=== PATIENT | female | born 1935 | race Caucasian/White ===

== ENCOUNTER 2018-02-13 05:51 | Inpatient (IN) | payer OTHER ==
[2018-02-07 16:18] VITALS: BMI 26.4
[2018-02-13] MEDS ORDERED: oxyCODONE HCL 10 MG SUSTAINED ACTING TABLET PO ONE (06:30)
[2018-02-13] MEDS ORDERED: ROPIVICAINE 0.2%/MORPH PF/KETOROLAC - 51ML DISP.SYRINGE IA ONE ×2 (06:30→10:47)
[2018-02-13] MEDS ORDERED: TRANEXAMIC ACID 1000 MG/10 ML VIAL IVPUSH ONE (06:30)
[2018-02-13] MEDS ORDERED: CEFAZOLIN 1 GM/D5W 1 GM/50 ML BAG IVPB ONE (06:30)
--- NOTE | 2018-02-13 07:03 | HP ---
Admitting History and Physical - Admission Chief Complaint: left hip osteoarthritis x years History of Present Illness: 82 year old female presents in regard to her left hip. Longstanding history of left hip osteoarthritis. Patient complains of pain, limited ROM, difficulty ambulating and difficulty with ADLs including putting on her socks and shoes. Patient has failed conservative treatment measures including PO medication, activity modification, injections and exercise program. Patient would like to proceed with surgical intervention, left total hip arthroplasty - MAKOplasty. History Source: Patient - Past Medical History Cardiovascular: Yes: HTN, Hyperlipdemia Musculoskeletal: Yes: Osteoarthritis Endocrine: Yes: Hypothyroidism - Past Surgical History Additional Past Surgical History: See written history & physical. - Smoking History Smoking history: Never smoked Have you smoked in the past 12 months: No - Alcohol/Substance Use Hx Alcohol Use: No Home Medications - Allergies Allergies/Adverse Reactions: Allergies Allergy/AdvReac Type Severity Reaction Status Date / Time No Known Allergies Allergy Verified 02/13/18 07:14 - Home Medications Home Medications: Ambulatory Orders Isosorbide Mononitrate [Imdur -] 30 mg PO DAILY 09/23/13 Levothyroxine [Synthroid -] 112 mcg PO DAILY 09/23/13 Metoprolol Succinate [Toprol XL -] 25 mg PO BID 09/23/13 Simvastatin [Zocor] 20 mg PO WEEKLY 09/23/13 Amlodipine Bes/Olmesartan Med [Nia 10-40 mg Tablet] 1 each PO DAILY 02/07/18 Zolpidem Tartrate [Ambien] 5 mg PO HS 02/13/18 Review of Systems - Review of Systems Musculoskeletal: reports: Decreased ROM (left hip), Joint Pain (left hip) Physical Examination Constitutional: Yes: Well Nourished, No Distress Eyes: Yes: Conjunctiva Clear HENT: Yes: Atraumatic, Normocephalic Neck: Yes: Supple Cardiovascular: Yes: Regular Rate and Rhythm Respiratory: Yes: Regular Gastrointestinal: Yes: Soft ...Rectal Exam: Yes: Deferred Musculoskeletal: Yes: Joint Stiffness (left hip), Muscle Weakness (left hip) Assessment/Plan 82 year old female presenting in regard to her left hip. Longstanding history of left hip osteoarthritis. Patient admits to pain, limited ROM, difficulty ambulating and difficulty with ADLs including putting on her socks and shoes. Patient has trialed and failed conservative treatment measures including PO medications, activity modification, injections and exercise program. Pros, cons , risks, benefits and alternatives of a left total hip arthroplasty, MAKOplasty were discussed at length with the patient. Patient confirms their understanding and consents to proceed with a left total hip arthroplasty, MAKOplasty.
[2018-02-13] MEDS: CELECOXIB 200 MG CAPSULE PO ONE ×2 (07:15→14:19)
[2018-02-13] MEDS: GABAPENTIN 300 MG CAPSULE (FP) PO ONE ×2 (07:15→14:26)
[2018-02-13] MEDS: PANTOPRAZOLE 40 MG TABLET (FP) PO ONE ×2 (07:16→14:29)
[2018-02-13] MEDS ORDERED: ceFAZolin SODIUM 1 GM VIAL ONE (07:19)
[2018-02-13] MEDS ORDERED: VANCOMYCIN 1,000 MG VIAL (RESTRICTED TO ID ONLY) ONE (07:19)
[2018-02-13] MEDS ORDERED: DEXAMETHASONE SOD PHOSPHATE/PF 10 MG/ML SDV ONE (07:23)
[2018-02-13] MEDS ORDERED: LIDOCAINE 1% P/F 10 MG/ML VIAL ONE (07:24)
[2018-02-13] MEDS ORDERED: ROPIVACAINE HCL 0.5% 30ML VIAL ONE (07:24)
[2018-02-13] MEDS ORDERED: MIDAZOLAM HCL 2 MG/2 ML SINGLE DOSE VIAL ONE (07:37)
[2018-02-13] MEDS ORDERED: BUPIVACAINE HCL/PF 0.5% (5MG/ML) 10 ML VIAL ONE (08:18)
[2018-02-13] MEDS ORDERED: PROPOFOL 20 ML ONE ×8 (08:20)
[2018-02-13] MEDS ORDERED: ePHEDrine SULFATE 50 MG/1 ML AMPULE ONE (09:24)
[2018-02-13] MEDS ORDERED: ONDANSETRON 4 MG/2 ML VIAL IVPUSH PRN ×2 (11:37→11:58)
[2018-02-13] MEDS ORDERED: ACETAMINOPHEN 1000 MG/100 ML VIAL (NON FORMULARY) IVPB ONE (11:37)
--- NOTE | 2018-02-13 11:57 | OP ---
Operative Note - Note: Operative Date: 02/13/18 Pre-Operative Diagnosis: Left hip OA Operation: Left CAM Abraham Post-Operative Diagnosis: Same as Pre-op Surgeon: Justo Noble Data Administrator: Leti Johnson Anesthesia: Spinal Estimated Blood Loss (mls): 200
[2018-02-13] MEDS ORDERED: MAGNESIUM HYDROX 2400MG/30ML ORAL SUSPENSION 30 ML CUP PO PRN (11:58)
[2018-02-13] MEDS ORDERED: MAG HYDROX/AL HYDROX/SIMETH 30 ML UNIT-DOSE CUP PO PRN (11:58)
[2018-02-13] MEDS ORDERED: PATIENT'S OWN MEDICATION (NON-FORMULARY) (Simvastatin 20 MG) PO SCH (12:00)
[2018-02-13] MEDS ORDERED: LACTATED RINGERS SOLUTION 1,000 ML IV SCH (12:00)
[2018-02-13] MEDS ORDERED: DEXAMETHASONE SOD PHOSPHATE 10 MG/1 ML VIAL IVPB ONE ×2 (12:02→20:00)
--- NOTE | 2018-02-13 12:12 | SPEC ---
DATE OF OPERATION: 02/13/2018 PREOPERATIVE DIAGNOSIS: Left hip osteoarthritis. POSTOPERATIVE DIAGNOSIS: Left total hip replacement with MAKOplasty robotic navigation. ATTENDING: Guy Coulter MD TOY STUFFER: RON Judd ANESTHESIA: Spinal plus sedation. ESTIMATED BLOOD LOSS: 200 mL. COMPLICATIONS: None. SPECIMENS: Resected femoral head was sent for pathology analysis. DISPOSITION: The patient was transferred to the PACU in stable condition. IMPLANTS USED: [place] Accolade size 5 femoral component, Tritanum 48-mm acetabular component with 25-mm screw, MDM head ball with 22+3 mm inner ball. INDICATIONS: This is an 82-year-old female who presented to the office complaining of left hip pain. She was seen and examined by Dr. Coulter and diagnosed with severe left hip osteoarthritis. The patient was initially treated conservatively but failed nonoperative management. She was subsequently indicated for a left total hip replacement with MAKOplasty robotic navigation. The risks, benefits, and alternatives to the surgery were explained to the patient in great detail, and she elected to proceed with the procedure. DESCRIPTION OF PROCEDURE: On the day of surgery, the patient was taken to the operating room and placed on the OR table. Spinal anesthesia was administered by the anesthesiologist. The patient was then positioned in the lateral decubitus position on the table and all bony prominences were padded. An axillary roll was placed. The operative hip was then prepped and draped in the usual sterile fashion and intravenous antibiotics were given for infection prophylaxis. A surgical time-out was then performed with the team, and the patients identity, procedure, side, availability of implants, and the administration of antibiotics were confirmed. An approximately 15-cm longitudinal incision was made through the skin centered on the greater trochanter of the hip. This dissection was carried down through the subcutaneous tissues to the deep fascia. This fascia was then incised and a Cobra was placed around the inferior femoral neck. Electrocautery was used to reflect the anterior 40% of the gluteus medius and minimus starting at the musculotendinous junction and leaving a cuff for closure. This was reflected to reveal the capsule of the hip joint. An anterior capsulectomy was performed and the femoral head and neck were visualized. Grade 4 changes were noted diffusely throughout the joint. At this point, three small stab incisions were made superior to the main incision along the iliac crest. Three self-drilling Steinmann pins were then placed and the Abraham pelvic array was attached. Reference points on the limb were then entered into the robotic device and the limb length deficiency, offset, and femoral neck resection level were then calculated by the software. The hip was then dislocated with traction and external rotation. An oscillating saw was used to make the femoral neck cut at the level previously templated, and the femoral head was removed. Attention was then turned to the acetabulum. Retractors were then placed around the acetabulum and the labrum was removed. An acetabular checkpoint pin and the [employer] software were used to register the contours of the acetabulum. The acetabulum was then reamed in a single stage to the preoperatively templated size using the Abraham robotic arm. The appropriately sized cup was then impacted and had solid fixation as well as the preset inclination and version of 40 and 20 degrees, respectively. A polyethylene liner was then placed in the cup. Attention was then turned back to the femur, which was externally rotated for improved visualization. A femoral neck elevator was used to present the femoral neck cut, a box osteotome was used to enter the femoral canal, and a canal finder was used to go down the femoral shaft. The Abraham broaches were used sequentially until the optimal scratch fit was achieved. This correlated with the preoperatively templated size. From here, several different offset head and neck configurations were tested until excellent stability and length were obtained. These measurements were quantified using the [employer] software. All trial components were then removed, the femur was copiously irrigated, and the final components were placed. Leg length and stability were checked again and found to be excellent. Irrigation was performed again. After final implants were placed, a 3-minute dilute Betadine lavage was performed. Following this, the wound was thoroughly irrigated with normal saline contained Ancef via pulse lavage. Following this, wound closure was begun. Wound closure was started by repairing the abductor muscles with a no. 2 FiberWire stitch in a Krackow configuration passed through bone tunnels in the greater trochanter and tied over a bony bridge. This repair was then reinforced with a 0 V-Loc 180 barbed suture. Next, no. 1 Polysorb and 0 V-Loc 180 were used to close the fascia. The deep subcutaneous tissue was closed with no. 1 Polysorb sutures, and 2-0 Polysorb was used for the superficial subcutaneous tissue. The skin was closed using both 3-0 V-Loc 90 suture in a running subcuticular fashion and SwiftSet skin adhesive. The Abraham array and pins were removed from the iliac crest and the stab incision sites were irrigated and closed with 4-0 Polysorb sutures and SwiftSet skin adhesive. Once this was completed, a sterile dressing was applied. The patient was then awakened and taken to the PACU in stable condition. GUY COULTER M.D. [id number]
[2018-02-13] MEDS ORDERED: oxyCODONE HCL 10 MG SUSTAINED ACTING TABLET ONE (12:25)
[2018-02-13] MEDS ORDERED: traMADol HCL 50 MG TABLET ONE (12:25)
[2018-02-13] MEDS ORDERED: ACETAMINOPHEN INJECTION 100 ML IVPB ONE (12:26)
[2018-02-13] MEDS: ACETAMINOPHEN 1000 MG/100 ML VIAL (NON FORMULARY) IVPB ONE ×2 (12:30→14:30)
[2018-02-13] MEDS: oxyCODONE HCL 10 MG SUSTAINED ACTING TABLET PO ONE ×2 (12:45→14:31)
[2018-02-13] MEDS: traMADol HCL 50 MG TABLET PO SCH ×3 (12:45→18:19)
[2018-02-13] MEDS: LACTATED RINGERS SOLUTION 1,000 ML IV SCH (14:29)
[2018-02-13] MEDS: ACETAMINOPHEN 325 MG TABLET (FP) PO SCH ×2 (14:32→18:19)
[2018-02-13] MEDS: CEFAZOLIN 1 GM/D5W 1 GM/50 ML BAG IVPB SCH (17:53)
[2018-02-13] MEDS: GABAPENTIN 300 MG CAPSULE (FP) PO SCH (21:51)
[2018-02-13] MEDS: ASCORBIC ACID 500 MG TABLET (FP) PO SCH (21:51)
[2018-02-13] MEDS: metoPROLOL SUCCINATE 25 MG TAB.SR.24H (FP) PO SCH (21:51)
[2018-02-13] MEDS: SENNOSIDES/DOCUSATE COMBO (SENNA PLUS) TABLET (UD) PO SCH (21:51)
[2018-02-14] MEDS: ACETAMINOPHEN 325 MG TABLET (FP) PO SCH ×6 (00:10→23:56)
[2018-02-14] MEDS: traMADol HCL 50 MG TABLET PO SCH ×5 (00:10→23:57)
[2018-02-14] MEDS: CEFAZOLIN 1 GM/D5W 1 GM/50 ML BAG IVPB SCH (02:43)
[2018-02-14] MEDS: LEVOTHYROXINE NA 112 MCG TABLET (FP) PO SCH (06:22)
[2018-02-14] MEDS: ASPIRIN 325 MG TABLET PO SCH (08:24)
[2018-02-14 09:16] LABS: HEMATOCRIT 33.8 % (32.4-45.2); HEMOGLOBIN 11.4 GM/dl (10.7-15.3); MCHC 33.7 g/dl (32.0-36.0); MEAN PLT VOLUME 9.1 fl (7.5-11.1); PLATELET COUNT 208 K/MM3 (134-434); RDW 13.2 % (11.6-15.6); WHITE BLOOD COUNT 15.9 K/mm3 (4.0-10.8)
[2018-02-14 09:34] LABS: ANION GAP 5 (8-16); BLOOD UREA NITROGEN 34 mg/dl (7-18); CALCIUM 9.1 mg/dl (8.4-10.2); CHLORIDE 104 mmol/L (98-107); CO2 21 mmol/L (22-28); CREATININE 1.4 mg/dl (0.6-1.3); GLUCOSE,RANDOM 173 mg/dl (74-106); SODIUM 130 mmol/L (136-145)
[2018-02-14] MEDS: ISOSORBIDE MONONITRATE 30 MG TAB.SR.24H (FP) PO SCH (09:50)
[2018-02-14] MEDS: PANTOPRAZOLE 40 MG TABLET (FP) PO SCH (09:50)
[2018-02-14] MEDS: MULTIVITAMINS (DAILY MVI) TABLET (FP) PO SCH (09:50)
[2018-02-14] MEDS: SENNOSIDES/DOCUSATE COMBO (SENNA PLUS) TABLET (UD) PO SCH ×2 (09:50→21:30)
[2018-02-14] MEDS: metoPROLOL SUCCINATE 25 MG TAB.SR.24H (FP) PO SCH ×2 (09:50→21:30)
[2018-02-14] MEDS: GABAPENTIN 300 MG CAPSULE (FP) PO SCH ×2 (09:50→21:30)
[2018-02-14] MEDS: ASCORBIC ACID 500 MG TABLET (FP) PO SCH ×2 (09:50→21:30)
[2018-02-14] MEDS ORDERED: PATIENT'S OWN MEDICATION (NON-FORMULARY) (Amlodipine Bes/Olmesartan Med [Azor 10-40 Mg Tab PO SCH (10:00)
--- NOTE | 2018-02-14 10:45 | PN ---
Progress Note (short form) - Note Progress Note: 82F POD1 s/p left THR under spinal anesthetic with peripheral nerve blocks for post operative pain. Pt states that pain is well controlled, reports no anesthetic complications. AVSS. Sensory and motor function intact in bilateral lower extremities. Continue current regimen.
[2018-02-14] MEDS: LACTATED RINGERS SOLUTION 1,000 ML IV SCH (11:58)
--- NOTE | 2018-02-14 21:07 | PN ---
Progress Note (short form) - Note Progress Note: Pt seen and examined. Doing very well. AVSS Selected Entries 02/14/18 14:34 Temperature 97.9 F Pulse Rate 68 Respiratory 16 Rate Blood Pressure 111/49 Laboratory Tests 02/14/18 02/14/18 07:15 07:15 WBC 15.9 H Hgb 11.4 Hct 33.8 Plt Count 208 Sodium 130 L Potassium 5.0 Chloride 104 Carbon Dioxide 21 L Anion Gap 5 L BUN 34 H Creatinine 1.4 H Random Glucose 173 H Calcium 9.1 Gen: NAD RLE: c/d/i, NVID A/P 82yo female POD#1 s/p L CAM 1. PT/OOB - WBAT LLE 2. D/C in AM after PT to [facility]. F/U in office in 3 weeks - call for appt.
--- NOTE | 2018-02-14 21:15 | DS ---
Physical Examination Vital Signs: Vital Signs Temperature 97.9 F 02/14/18 14:34 Pulse Rate 68 02/14/18 14:34 Respiratory Rate 16 02/14/18 14:34 Blood Pressure 111/49 02/14/18 14:34 O2 Sat by Pulse Oximetry (%) 96 02/14/18 14:34 Labs: CBC, BMP 02/14/18 07:15 02/14/18 07:15 Discharge Summary Reason For Visit: OSTEOARTHRITIS LEFT HIP Current Active Problems Primary osteoarthritis of left hip (Acute) Procedures: Principal: Left CAM Hospital Course: Admitted for elective surgery. Procedure performed without complications. Pt received postoperative antibiotic prophylaxis and DVT ppx. Ambulated with physical therapy. Stable for discharge to SNF with outpatient followup. Condition: Stable - Instructions Diet, Activity, Other Instructions: Dr Noble - Hip Replacement Instructions Keep the Aquacel dressing on until removed by Dr. Noble in 10-14 days - it is antibacterial and waterproof and you can shower with it on. Call the office for a follow-up appointment with Dr. Noble in 3 weeks (second week of February) - [phone] Take one Aspirin 325mg daily for 6 weeks to prevent blood clots in your legs. Take one Pantoprazole 40mg daily for 6 weeks to protect against heartburn and ulcers. Take a multivitamin, stool softener, and extra vitamin C supplement daily. For pain: *Mild pain (1-3/10): Take 1 Tramadol tablet every 4 hours as needed. Moderate pain (4-6/10): Take 1 Tramadol tablet and 1 Percocet tablet every 4 hours as needed. Severe pain (7-10/10): Take 1 Tramadol tablet and 2 Percocet tablets every 4 hours as needed. Activity: You can put as much weight on the operative leg as you want. Anterolateral approach used - pt has no hip precautions at all. Always use a walker or cane for balance and to prevent falls. Disposition: [facility] - Home Medications Comprehensive Discharge Medication List: Ambulatory Orders Amlodipine Bes/Olmesartan Med [Nia 10-40 mg Tablet] 1 each PO DAILY #30 tab Ascorbic Acid [Vitamin C -] 500 mg PO BID #30 tablet 02/14/18 Aspirin [ASA -] 325 mg PO DAILY@0800 #40 tablet 02/14/18 Isosorbide Mononitrate [Imdur -] 30 mg PO DAILY #30 tab 02/14/18 Levothyroxine [Synthroid -] 112 mcg PO DAILY #30 tab 02/14/18 Metoprolol Succinate [Toprol XL -] 25 mg PO BID #60 tab 02/14/18 Multivitamins [Multivit ([facility] Formulary)] 1 tab PO DAILY #30 tab 02/14/18 Oxycodone HCl/Acetaminophen [Percocet 5-325 mg Tablet] 1 - 2 tab PO Q4H PRN #60 tablet MDD 8 02/14/18 Pantoprazole Sodium [Protonix -] 40 mg PO DAILY #40 tablet.ec 02/14/18 Sennosides/Docusate Sodium [Pericolace -] 2 tablet PO BID #60 tablet 02/14/18 Simvastatin [Zocor -] 20 mg PO WEEKLY #30 tab 02/14/18 Zolpidem Tartrate [Ambien] 5 mg PO HS PRN #30 tab 02/14/18 traMADol HCL [Ultram -] 50 mg PO Q4H PRN #90 tablet MDD 6 02/14/18
[2018-02-15] MEDS: traMADol HCL 50 MG TABLET PO SCH (06:25)
[2018-02-15] MEDS: ACETAMINOPHEN 325 MG TABLET (FP) PO SCH (06:26)
[2018-02-15 06:48] VITALS: BP 119/67; PULSE 86; TEMP 98.4
[2018-02-15] MEDS: LEVOTHYROXINE NA 112 MCG TABLET (FP) PO SCH (07:48)
[2018-02-15] MEDS: ASPIRIN 325 MG TABLET PO SCH (07:51)
[2018-02-15 08:15] LABS: ANION GAP 4 (8-16); BLOOD UREA NITROGEN 29 mg/dl (7-18); CALCIUM 9.4 mg/dl (8.4-10.2); CHLORIDE 106 mmol/L (98-107); CO2 25 mmol/L (22-28); CREATININE 1.2 mg/dl (0.6-1.3); GLUCOSE,RANDOM 120 mg/dl (74-106); SODIUM 135 mmol/L (136-145)
[2018-02-15 08:16] LABS: HEMOGLOBIN 11.4 GM/dl (10.7-15.3); MCH 30.1 pg (25.7-33.7); MCHC 33.6 g/dl (32.0-36.0); MEAN CELL VOLUME 89.7 fl (80-96); MEAN PLT VOLUME 9.6 fl (7.5-11.1); PLATELET COUNT 226 K/MM3 (134-434); RBC 3.79 M/mm3 (3.60-5.2); RDW 13.6 % (11.6-15.6); WHITE BLOOD COUNT 13.7 K/mm3 (4.0-10.8)
[2018-02-15] MEDS: MULTIVITAMINS (DAILY MVI) TABLET (FP) PO SCH (09:17)
[2018-02-15] MEDS: PANTOPRAZOLE 40 MG TABLET (FP) PO SCH (09:18)
[2018-02-15] MEDS: metoPROLOL SUCCINATE 25 MG TAB.SR.24H (FP) PO SCH (09:18)
[2018-02-15] MEDS: ASCORBIC ACID 500 MG TABLET (FP) PO SCH (09:19)
[2018-02-15] MEDS: SENNOSIDES/DOCUSATE COMBO (SENNA PLUS) TABLET (UD) PO SCH (09:19)
[2018-02-15] MEDS: GABAPENTIN 300 MG CAPSULE (FP) PO SCH (09:19)
[2018-02-15] MEDS: ISOSORBIDE MONONITRATE 30 MG TAB.SR.24H (FP) PO SCH (09:19)
--- NOTE | 2018-02-17 12:10 | PATH ---
Surgical Pathology Report Patient Name: JOSE DANIEL GERMAIN Med. Rec. #: [id number] /Age/Gender: 1935 (Age: 82) / F Account: [id number] Location: [facility] MED-SURG Taken: 02/13/2018 Received: 02/13/2018 Reported: 02/17/2018 Physicians: Justo Noble M.D. Specimen(s) Received LEFT FEMORAL HEAD Clinical History Osteoarthritis left hip Final Diagnosis BONE, LEFT FEMORAL HEAD, REPLACEMENT: DEGENERATIVE JOINT DISEASE. Electronically Signed Lefty Kuhn M.D. Gross Description Received in formalin, labeled "left femoral head," is a 3.7 x 3.7 x 3.2 cm. femoral head with a 1.0 cm in length portion of femoral neck attached. The margin of resection is smooth. There is a 3.8 cm greatest dimension area of eburnation present. The remaining articular surface is salvador-yellow and diffusely granular. The underlying trabecular bone is yellow and hard. A service center representative section is submitted in one cassette, following decalcification. [facility]
== END 2018-02-15 11:00 | DRG 470 ==
LOC: FM/S 05:51
PROVIDERS: ADMIT Student in an Organized Health Care Education/Training Program; ATTEND Student in an Organized Health Care Education/Training Program
PROC: 8E0Y0CZ Robotic Assisted Procedure of Lower Extremity, Open Approach (ICD-10-PCS; 2018-02-13)
PROC: 0SRB0JZ Replacement of Left Hip Joint with Synthetic Substitute, Open Approach (ICD-10-PCS; principal; 2018-02-13 08:25)
DX: M16.12 Unilateral primary osteoarthritis, left hip (principal); I10 Essential (primary) hypertension; E78.5 Hyperlipidemia, unspecified; E03.9 Hypothyroidism, unspecified
CPT/HCPCS: 36415; 73502-TC-LT-FY; 80048; 85027; 88304-TC; 88311-TC; 94010; 94760; 97116-GP; 97162-GP; J0131; J1100

== ENCOUNTER 2018-05-16 12:41 | Day surgery (SDC) | payer OTHER ==
[2018-05-16 14:12] VITALS: BMI 26.9
[2018-05-16] MEDS ORDERED: LIDOCAINE HCL 2% (20ML MULTI-DOSE VIAL) NR ONE (14:17)
[2018-05-16] MEDS ORDERED: PROPOFOL 20 ML ONE (14:17)
[2018-05-16 14:59] VITALS: TEMP 97.8
[2018-05-16 15:45] VITALS: BP 137/66; PULSE 70
--- NOTE | 2018-05-21 17:17 | PATH ---
Surgical Pathology Report Patient Name: JOSE DANIEL GERMAIN [facility]. Rec. #: [id number] /Age/Gender: 1935 (Age: 82) / F Account: [id number] Location: U-ENDOSCOPY Taken: 05/16/2018 Received: 05/19/2018 Reported: 05/21/2018 Physicians: Beth Marques M.D. Specimen(s) Received A: BX 2ND PORTION DUODENUM AND BULB B: BX ANTRUM Clinical History Abdominal pain Postoperative diagnosis: Gastritis, hiatal hernia Final Diagnosis A. SECOND PORTION DUODENUM, BIOPSY: DUODENAL MUCOSA WITH MILD CHRONIC DUODENITIS. B. ANTRUM, BIOPSY: GASTRIC MUCOSA WITH ACTIVE CHRONIC GASTRITIS. IMMUNOSTAIN IS NEGATIVE FOR H. PYLORI ORGANISMS. Electronically Signed Martha Jean M.D. Gross Description A. Received in formalin, labeled "biopsy second portion of duodenum and bulb" are 3 salvador, irregular portions of soft tissue ranging from 0.2-0.5 cm. in greatest dimension. The specimens are submitted in toto in one cassette. B. Received in formalin, labeled "biopsy antrum" are 3 salvador, irregular portions of soft tissue ranging from 0.4-0.6 cm. in greatest dimension. The specimens are submitted in toto in one cassette. 05/19/2018 [facility]05/19/2018
== END 2018-05-16 15:35 | disposition home or self-care (01) ==
LOC: JASU-ENDO 12:41
PROVIDERS: ATTEND Internal Medicine Gastroenterology
PROC: 0DB68ZX Excision of Stomach, Via Natural or Artificial Opening Endoscopic, Diagnostic (ICD-10-PCS; 2018-05-16)
PROC: 0DB98ZX Excision of Duodenum, Via Natural or Artificial Opening Endoscopic, Diagnostic (ICD-10-PCS; principal; 2018-05-16 15:00)
DX: K25.9 Gastric ulcer, unspecified as acute or chronic, without hemorrhage or perforation (principal); K44.9 Diaphragmatic hernia without obstruction or gangrene
CPT/HCPCS: 88305-TC; 88342-TC

== ENCOUNTER 2018-10-02 05:54 | Inpatient (IN) | payer OTHER ==
--- NOTE | 2018-09-25 14:50 | HP ---
Admitting History and Physical - Admission Chief Complaint: Right hip osteoarthritis x years History of Present Illness: 82 year old female presents today in follow up of her right hip. Longstanding history of right hip osteoarthritis. Patient complains of pain, limited ROM, difficulty ambulating and difficulty completing ADLs. Patient has failed conservative treatment measures including PO medications, activity modification , injections and exercise programs. At this point, patient would like to proceed with surgical intervention - Right total hip arthroplasty, MAKOplasty. History Source: Patient - Past Medical History Cardiovascular: Yes: HTN, Hyperlipdemia Gastrointestinal: Yes: GERD Musculoskeletal: Yes: Osteoarthritis Endocrine: Yes: Hypothyroidism - Past Surgical History Additional Past Surgical History: See written history & physical. - Smoking History Smoking history: Never smoked Have you smoked in the past 12 months: No - Alcohol/Substance Use Hx Alcohol Use: No Home Medications - Allergies Allergies/Adverse Reactions: Allergies Allergy/AdvReac Type Severity Reaction Status Date / Time No Known Allergies Allergy Verified 09/23/18 13:07 - Home Medications Home Medications: Ambulatory Orders Amlodipine Bes/Olmesartan Med [Nia 10-40 mg Tablet] 1 each PO DAILY #30 tab Levothyroxine [Synthroid -] 112 mcg PO DAILY #30 tab 02/14/18 Metoprolol Succinate [Toprol XL -] 25 mg PO BID #60 tab 02/14/18 Simvastatin [Zocor -] 20 mg PO WEEKLY #30 tab 02/14/18 Ranitidine HCl [Zantac] 150 mg PO BID #30 tablet 05/16/18 Review of Systems - Review of Systems Musculoskeletal: reports: Decreased ROM (right hip), Joint Pain (right hip) Physical Examination Constitutional: Yes: Well Nourished, No Distress Eyes: Yes: Conjunctiva Clear HENT: Yes: Atraumatic, Normocephalic Neck: Yes: Supple Cardiovascular: Yes: Regular Rate and Rhythm Respiratory: Yes: Regular Gastrointestinal: Yes: Soft ...Rectal Exam: Yes: Deferred Musculoskeletal: Yes: Joint Stiffness (right hip) Assessment/Plan 82 year old female presents today in follow up of her right hip. Longstanding history of right hip osteoarthritis. Patient complains of pain, limited ROM, difficulty ambulating and difficulty completing ADLs. Patient has failed conservative treatment measures including PO medications, activity modification , injections and exercise programs. At this point, patient would like to proceed with surgical intervention - Right total hip arthroplasty, MAKOplasty. Pros, cons, risks, benefits and alternatives of a right total hip arthroplasty - MAKOplasty, were discussed with the patient at length. Patient confirms her understanding and consents to proceed with a right total hip arthroplasty - MAKOplasty.
[~2018-10-02 05:54] MED LIST: CELECOXIB 200 MG CAPSULE PO ONE; GABAPENTIN 300 MG CAPSULE (FP) PO ONE; PANTOPRAZOLE 40 MG TABLET (FP) PO ONE; oxyCODONE HCL 10 MG SUSTAINED ACTING TABLET PO ONE
[2018-10-02 06:43] VITALS: BMI 24.6
[2018-10-02] MEDS ORDERED: GABAPENTIN 300 MG CAPSULE (FP) ONE (06:54)
[2018-10-02] MEDS ORDERED: CELECOXIB 200 MG CAPSULE ONE (06:54)
[2018-10-02] MEDS ORDERED: PANTOPRAZOLE 40 MG TABLET (FP) ONE (06:54)
[2018-10-02] MEDS ORDERED: ceFAZolin SODIUM 1 GM VIAL ONE (07:09)
[2018-10-02] MEDS ORDERED: DEXAMETHASONE SOD PHOSPHATE 4 MG/1 ML VIAL ONE (07:09)
[2018-10-02] MEDS ORDERED: ONDANSETRON 4 MG/2 ML VIAL ONE (07:09)
[2018-10-02] MEDS ORDERED: MIDAZOLAM HCL 2 MG/2 ML SINGLE DOSE VIAL ONE (07:12)
[2018-10-02] MEDS ORDERED: DEXAMETHASONE SOD PHOSPHATE/PF 10 MG/ML SDV ONE (07:12)
[2018-10-02] MEDS ORDERED: LIDOCAINE 1% P/F 10 MG/ML VIAL ONE (07:13)
[2018-10-02] MEDS ORDERED: BUPIVACAINE HCL/PF (5 MG/ML) 30 ML VIAL IJ ONE (07:13)
[2018-10-02] MEDS ORDERED: CEFAZOLIN 1 GM/D5W 1 GRAM/50 ML BAG IVPB ONE (08:00)
[2018-10-02] MEDS ORDERED: TRANEXAMIC ACID 1000 MG/10 ML VIAL IVPUSH ONE (08:00)
[2018-10-02] MEDS ORDERED: ROPIVICAINE 0.2%/MORPH PF/KETOROLAC - 51ML DISP.SYRINGE IA ONE ×3 (08:00→10:28)
[2018-10-02] MEDS ORDERED: ePHEDrine SULFATE 50 MG/1 ML AMPULE ONE (08:36)
[2018-10-02] MEDS ORDERED: TRANEXAMIC ACID 1000 MG/10 ML VIAL ONE (08:42)
[2018-10-02] MEDS ORDERED: PROPOFOL 20 ML ONE ×2 (09:11→10:36)
[2018-10-02] MEDS ORDERED: VANCOMYCIN 1,000 MG VIAL (RESTRICTED TO ID ONLY) IVPB ONE ×2 (09:36→10:27)
[2018-10-02] MEDS ORDERED: TRANEXAMIC ACID 1000 MG/10 ML VIAL IVPB ONE ×2 (09:37→10:28)
[2018-10-02] MEDS ORDERED: oxyCODONE HCL 5 MG TABLET PO PRN ×2 (11:13)
[2018-10-02] MEDS ORDERED: ONDANSETRON 4 MG/2 ML VIAL IVPUSH PRN ×2 (11:13→11:31)
[2018-10-02] MEDS ORDERED: LACTATED RINGERS SOLUTION 1,000 ML IV SCH ×2 (11:15→11:45)
[2018-10-02] MEDS ORDERED: ACETAMINOPHEN 1000 MG/100 ML VIAL (NON FORMULARY) IVPB ONE ×2 (11:22→12:04)
[2018-10-02] MEDS ORDERED: PATIENT'S OWN MEDICATION (NON-FORMULARY) (Simvastatin 20 MG) PO SCH (11:30)
[2018-10-02] MEDS ORDERED: MAGNESIUM HYDROX 2400MG/30ML ORAL SUSPENSION 30 ML CUP PO PRN (11:31)
[2018-10-02] MEDS ORDERED: MAG HYDROX/AL HYDROX/SIMETH 30 ML UNIT-DOSE CUP PO PRN (11:31)
--- NOTE | 2018-10-02 11:40 | OP ---
Operative Note - Note: Operative Date: 10/02/18 Pre-Operative Diagnosis: right hip OA Operation: right RUBY CAM Post-Operative Diagnosis: Same as Pre-op Surgeon: Justo Noble Weaving Instructor: Denise Rodriguez Anesthesia: Spinal Estimated Blood Loss (mls): 200
[2018-10-02] MEDS ORDERED: traMADol HCL 50 MG TABLET PO ONE (12:00)
--- NOTE | 2018-10-02 12:01 | SPEC ---
DATE OF OPERATION: 10/02/2018 PREOPERATIVE DIAGNOSIS: Right hip osteoarthritis. POSTOPERATIVE DIAGNOSIS: Right hip osteoarthritis. PROCEDURE: Right total hip replacement with MAKOplasty robotic navigation. ATTENDING: Guy Coulter MD BAG LINER: RON Burns ANESTHESIA: Spinal plus sedation. ESTIMATED BLOOD LOSS: 200 mL COMPLICATIONS: None. DISPOSITION: The patient was transferred to the PACU in stable condition. IMPLANTS USED: [place] Accolade II size 6 femoral component; [place] Tritanium 46-mm acetabular component with 25-mm, 25-mm, and 30-mm screws; MDM bipolar head ball and liner. INDICATIONS: This is an 82-year-old female who is a long-time patient of mine, who has a history of bilateral hip osteoarthritis. She underwent a left total hip replacement in January 2018, and did very well postoperatively. The right hip subsequently became more symptomatic, and she complained of worsening pain and ambulatory dysfunction. She wished to proceed with a right total hip replacement because the left had gone so well and she no longer had any left hip pain. The risks, benefits, and alternatives to the procedure were explained to the patient in great detail, and she elected to proceed with surgery. On the day of surgery, the patient was taken to the operating room and placed on the OR table. Spinal anesthesia was administered by the anesthesiologist. The patient was then positioned in the lateral decubitus position on the table and all bony prominences were padded. An axillary roll was placed. The operative hip was then prepped and draped in the usual sterile fashion and intravenous antibiotics were given for infection prophylaxis. A surgical time-out was then performed with the team, and the patients identity, procedure, side, availability of implants, and the administration of antibiotics were confirmed. An approximately 15-cm longitudinal incision was made through the skin centered on the greater trochanter of the hip. This dissection was carried down through the subcutaneous tissues to the deep fascia. This fascia was then incised and a Cobra was placed around the inferior femoral neck. Electrocautery was used to reflect the anterior 40% of the gluteus medius and minimus starting at the musculotendinous junction and leaving a cuff for closure. This was reflected to reveal the capsule of the hip joint. An anterior capsulectomy was performed and the femoral head and neck were visualized. Grade 4 changes were noted diffusely throughout the joint. At this point, three small stab incisions were made superior to the main incision along the iliac crest. Three self-drilling Steinmann pins were then placed and the [employer] pelvic array was attached. Reference points on the limb were then entered into the robotic device and the limb length deficiency, offset, and femoral neck resection level were then calculated by the software. The hip was then dislocated with traction and external rotation. An oscillating saw was used to make the femoral neck cut at the level previously templated, and the femoral head was removed. Attention was then turned to the acetabulum. Retractors were then placed around the acetabulum and the labrum was removed. An acetabular checkpoint pin and the [employer] software were used to register the contours of the acetabulum. The acetabulum was then reamed in a single stage to the preoperatively templated size using the Abraham robotic arm. The appropriately sized cup was then impacted and had solid fixation as well as the preset inclination and version of 40 and 20 degrees, respectively. A polyethylene liner was then placed in the cup. Attention was then turned back to the femur, which was externally rotated for improved visualization. A femoral neck elevator was used to present the femoral neck cut, a box osteotome was used to enter the femoral canal, and a canal finder was used to go down the femoral shaft. The Abraham broaches were used sequentially until the optimal scratch fit was achieved. This correlated with the preoperatively templated size. From here, several different offset head and neck configurations were tested until excellent stability and length were obtained. These measurements were quantified using the [employer] software. All trial components were then removed, the femur was copiously irrigated, and the final components were placed. Leg length and stability were checked again and found to be excellent. Irrigation was performed again. Wound closure was started by repairing the abductor muscles with a no. 2 FiberWire stitch in a Krackow configuration passed through bone tunnels in the greater trochanter and tied over a bony bridge. This repair was then reinforced with a 0 V-Loc 180 barbed suture. Next, no. 1 Polysorb and 0 V-Loc 180 were used to close the fascia. The deep subcutaneous tissue was closed with no. 1 Polysorb sutures, and 2-0 Polysorb was used for the superficial subcutaneous tissue. The skin was closed using both 3-0 V-Loc 90 suture in a running subcuticular fashion and SwiftSet skin adhesive. The Abraham array and pins were removed from the iliac crest and the stab incision sites were irrigated and closed with 4-0 Polysorb sutures and SwiftSet skin adhesive. Once this was completed, a sterile dressing was applied. The patient was then awakened and taken to the PACU in stable condition. ADDENDUM: After final implants were placed, a 3-minute dilute Betadine lavage was performed. Following this, the wound was thoroughly irrigated with normal saline via pulsatile lavage, and wound closure was begun. GUY COULTER M.D. [id number]
--- NOTE | 2018-10-02 12:24 | SURG ---
Surgery Hatchery Worker Note Hatchery Worker: Denise Rodriguez PA-C Date of Service: 10/02/18 Diagnosis: right hip OA Procedure: right RUBY CAM I was present for the entirety of the operative procedure. For further detail, please refer to operative report. Visit type - Case Type Case Type: Scheduled - Emergency Emergency Visit: No - New patient This patient is new to me today: Yes Date on this admission: 10/02/18
[2018-10-02] MEDS: traMADol HCL 50 MG TABLET PO SCH ×2 (12:37→18:07)
[2018-10-02] MEDS: CEFAZOLIN 1 GM/D5W 1 GRAM/50 ML BAG IVPB SCH (17:45)
[2018-10-02] MEDS: ACETAMINOPHEN 325 MG TABLET (FP) PO SCH (18:06)
[2018-10-02] MEDS ORDERED: DEXAMETHASONE SOD PHOSPHATE 10 MG/1 ML VIAL IVPB ONE (20:00)
[2018-10-02] MEDS: SENNOSIDES/DOCUSATE COMBO (SENNA PLUS) TABLET (UD) PO SCH (21:11)
[2018-10-02] MEDS: CELECOXIB 200 MG CAPSULE PO SCH (21:12)
[2018-10-02] MEDS: ASCORBIC ACID 500 MG TABLET (FP) PO SCH (21:12)
[2018-10-02] MEDS: GABAPENTIN 300 MG CAPSULE (FP) PO SCH (21:12)
[2018-10-03] MEDS: CEFAZOLIN 1 GM/D5W 1 GRAM/50 ML BAG IVPB SCH (01:21)
[2018-10-03] MEDS: traMADol HCL 50 MG TABLET PO SCH ×4 (01:22→17:39)
[2018-10-03] MEDS: ACETAMINOPHEN 325 MG TABLET (FP) PO SCH ×5 (01:22→23:34)
[2018-10-03] MEDS: LEVOTHYROXINE NA 112 MCG TABLET (FP) PO SCH (06:34)
[2018-10-03] MEDS ORDERED: ASPIRIN 325 MG TABLET PO SCH (08:00)
[2018-10-03 08:14] LABS: HEMOGLOBIN 10.7 GM/dl (10.7-15.3); MCH 30.2 pg (25.7-33.7); MCHC 33.5 g/dl (32.0-36.0); MEAN CELL VOLUME 90.4 fl (80-96); MEAN PLT VOLUME 8.8 fl (7.5-11.1); PLATELET COUNT 196 K/MM3 (134-434); RBC 3.54 M/mm3 (3.60-5.2); RDW 13.6 % (11.6-15.6); WHITE BLOOD COUNT 14.1 K/mm3 (4.0-10.8)
[2018-10-03 08:22] LABS: ANION GAP 8 MMOL/L (8-16); BLOOD UREA NITROGEN 49 mg/dl (7-18); CALCIUM 9.1 mg/dl (8.4-10.2); CHLORIDE 103 mmol/L (98-107); CO2 20 mmol/L (22-28); CREATININE 1.9 mg/dl (0.6-1.3); GLUCOSE,RANDOM 174 mg/dl (74-106); POTASSIUM 4.9 mmol/L (3.5-5.1); SODIUM 131 mmol/L (136-145)
[2018-10-03] MEDS ORDERED: PATIENT'S OWN MEDICATION (NON-FORMULARY) (Amlodipine Bes/Olmesartan Med [Azor 10-40 Mg Tab PO SCH (10:00)
[2018-10-03] MEDS ORDERED: RANITIDINE HCL 150 MG TABLET (FP) PO SCH (10:00)
[2018-10-03] MEDS: CELECOXIB 200 MG CAPSULE PO SCH (10:02)
[2018-10-03] MEDS: GABAPENTIN 300 MG CAPSULE (FP) PO SCH ×2 (10:02→21:08)
[2018-10-03] MEDS: ASCORBIC ACID 500 MG TABLET (FP) PO SCH ×2 (10:02→21:08)
[2018-10-03] MEDS: amLODIPine BESYLATE 10 MG TABLET (FP) PO SCH (10:03)
[2018-10-03] MEDS: APIXABAN 2.5 MG TABLET PO SCH ×2 (10:03→21:08)
[2018-10-03] MEDS: VALSARTAN 160 MG TABLET (UD) PO SCH (10:03)
[2018-10-03] MEDS: PANTOPRAZOLE 40 MG TABLET (FP) PO SCH (10:04)
[2018-10-03] MEDS: metoPROLOL SUCCINATE 25 MG TAB.SR.24H (FP) PO SCH (10:04)
[2018-10-03] MEDS: SENNOSIDES/DOCUSATE COMBO (SENNA PLUS) TABLET (UD) PO SCH ×2 (10:05→21:08)
[2018-10-03] MEDS: MULTIVITAMINS (DAILY MVI) TABLET (FP) PO SCH (10:05)
--- NOTE | 2018-10-03 22:29 | PN ---
Progress Note (short form) - Note Progress Note: Pt seen and examined. Doing well. Afebrile Selected Entries 10/03/18 10/03/18 10/03/18 14:16 18:00 20:08 Temperature 98.3 F 97.9 F Pulse Rate 86 63 Respiratory 16 18 Rate Blood Pressure 97/42 L 98/40 L O2 Sat by Pulse 93 L 92 L 93 L Oximetry (%) Laboratory Tests 10/03/18 10/03/18 07:46 07:46 WBC 14.1 H Hgb 10.7 Hct 32.0 L Plt Count 196 Sodium 131 L Potassium 4.9 Chloride 103 Carbon Dioxide 20 L Anion Gap 8 BUN 49 H Creatinine 1.9 H Creat Clearance w eGFR 25.18 Calcium 9.1 Gen: NAD RLE: c/d/i, NVID A/P 82yo female POD#1 s/p R CAM PT/OOB Increased BUN/Cr - d/c celebrex, recheck BMP in AM D/C home tomorrow after PT
--- NOTE | 2018-10-03 22:30 | DS ---
Physical Examination Vital Signs: Vital Signs Temperature 97.9 F 10/03/18 18:00 Pulse Rate 63 10/03/18 18:00 Respiratory Rate 16 10/03/18 20:08 Blood Pressure 98/40 L 10/03/18 18:00 O2 Sat by Pulse Oximetry (%) 93 L 10/03/18 20:08 Labs: CBC, BMP 10/03/18 07:46 10/03/18 07:46 Discharge Summary Reason For Visit: OSTEOARTHRITIS RIGHT HIP Current Active Problems Osteoarthritis of right hip (Acute) Procedures: Principal: right RUBY CAM Hospital Course: Admitted for elective surgery. Procedure performed without complications. Pt received postoperative antibiotic prophylaxis and DVT ppx. Ambulated with physical therapy. Stable for discharge home with outpatient followup. Condition: Stable - Instructions Diet, Activity, Other Instructions: Dr Noble - Hip Replacement Instructions Keep the Aquacel dressing on until removed by Dr. Noble in 10-14 days - it is antibacterial and waterproof and you can shower with it on. Call the office for a follow-up appointment with Dr. Noble in 10-14 days. Take ELIQUIS 2.5mg twice daily for 35 days to prevent blood clots in your legs. Take one Pantoprazole 40mg daily for 6 weeks to protect against heartburn and ulcers. Take Cephalexin (antibiotic) 3x/day for 10 days to help prevent skin infection. Take a multivitamin, stool softener and extra Vitamin C supplement daily. For pain: *Mild pain (1-3/10): Take 1 Tramadol tablet every 4 hours as needed. Moderate pain (4-6/10): Take 1 Tramadol tablet and 1 Percocet tablet every 4 hours as needed. Severe pain (7-10/10): Take 1 Tramadol tablet and 2 Percocet tablets every 4 hours as needed. Activity: You can put as much weight on the operative leg as you want. For the first 6 weeks, all you need to do is walk around the house, go up/down stairs, and sit down/get up. After 6 weeks when everything is healed (and bone has grown into the implant) you will be sent for more intensive outpatient physical therapy. Always use a walker or cane for balance and to prevent falls. Expect to see swelling / bruising from the operative site all the way down to your toes. Wear the Compression stocking on the operative side during the day to minimize how much swelling there is in your foot/ankle. Don't wear the stocking at night. You don't have to wear the stocking on the other side. Disposition: VNS/HOME HEALTH CARE - Home Medications Comprehensive Discharge Medication List: Ambulatory Orders Amlodipine Bes/Olmesartan Med [Nia 10-40 mg Tablet] 1 each PO DAILY #30 tab Levothyroxine [Synthroid -] 112 mcg PO DAILY #30 tab 02/14/18 Simvastatin [Zocor -] 20 mg PO WEEKLY #30 tab 02/14/18 Apixaban [Eliquis -] 2.5 mg PO BID #67 tablet 10/02/18 Ascorbic Acid [Vitamin C -] 500 mg PO BID tablet 10/02/18 Cephalexin Monohydrate [Keflex -] 500 mg PO TID #30 capsule 10/02/18 Metoprolol Succinate [Toprol XL -] 25 mg PO DAILY 10/02/18 Multivitamins [Multivit (RH Formulary)] 1 tab PO DAILY tab 10/02/18 Oxycodone HCl/Acetaminophen [Percocet 5-325 mg Tablet] 1 - 2 tab PO Q4H PRN #60 tablet MDD 10 10/02/18 Pantoprazole Sodium [Protonix -] 40 mg PO DAILY #40 tablet.ec 10/02/18 Ranitidine HCl [Zantac] 150 mg PO DAILY 10/02/18 traMADol HCL [Ultram -] 50 mg PO Q4H PRN #60 tablet MDD 6 10/02/18
[2018-10-04] MEDS: traMADol HCL 50 MG TABLET PO SCH ×3 (01:46→11:17)
[2018-10-04] MEDS: ACETAMINOPHEN 325 MG TABLET (FP) PO SCH ×2 (06:55→11:17)
[2018-10-04] MEDS: LEVOTHYROXINE NA 112 MCG TABLET (FP) PO SCH (06:55)
[2018-10-04 08:35] LABS: HEMATOCRIT 29.7 % (32.4-45.2); HEMOGLOBIN 9.9 GM/dl (10.7-15.3); MCHC 33.3 g/dl (32.0-36.0); MEAN CELL VOLUME 90.4 fl (80-96); MEAN PLT VOLUME 9.2 fl (7.5-11.1); PLATELET COUNT 165 K/MM3 (134-434); RBC 3.29 M/mm3 (3.60-5.2); WHITE BLOOD COUNT 12.5 K/mm3 (4.0-10.8)
[2018-10-04 08:43] LABS: ANION GAP 5 MMOL/L (8-16); BLOOD UREA NITROGEN 64 mg/dl (7-18); CALCIUM 8.6 mg/dl (8.4-10.2); CHLORIDE 100 mmol/L (98-107); CO2 22 mmol/L (22-28); GLUCOSE,RANDOM 142 mg/dl (74-106); POTASSIUM 5.2 mmol/L (3.5-5.1); SODIUM 127 mmol/L (136-145)
[2018-10-04] MEDS: ASCORBIC ACID 500 MG TABLET (FP) PO SCH (09:13)
[2018-10-04] MEDS: VALSARTAN 160 MG TABLET (UD) PO SCH (09:13)
[2018-10-04] MEDS: amLODIPine BESYLATE 10 MG TABLET (FP) PO SCH (09:14)
[2018-10-04] MEDS: metoPROLOL SUCCINATE 25 MG TAB.SR.24H (FP) PO SCH (09:14)
[2018-10-04] MEDS: PANTOPRAZOLE 40 MG TABLET (FP) PO SCH (09:14)
[2018-10-04] MEDS: APIXABAN 2.5 MG TABLET PO SCH (09:14)
[2018-10-04] MEDS: SENNOSIDES/DOCUSATE COMBO (SENNA PLUS) TABLET (UD) PO SCH (09:14)
[2018-10-04] MEDS: MULTIVITAMINS (DAILY MVI) TABLET (FP) PO SCH (09:14)
[2018-10-04] MEDS: GABAPENTIN 300 MG CAPSULE (FP) PO SCH (09:14)
[2018-10-04 09:20] VITALS: BP 96/40; PULSE 68; TEMP 98.1
--- NOTE | 2018-10-10 13:36 | PATH ---
Surgical Pathology Report Patient Name: JOSE DANIEL GERMAIN Med. Rec. #: [id number] /Age/Gender: 1935 (Age: 82) / F Account: [id number] Location: [facility] Taken: 10/02/2018 Received: 10/02/2018 Reported: 10/10/2018 Physicians: Justo Noble M.D. Specimen(s) Received RIGHT HEAD OF FEMUR Clinical History Right hip osteoarthritis Final Diagnosis HEAD OF FEMUR, RIGHT, TOTAL HIP REPLACEMENT: DEGENERATIVE JOINT DISEASE Electronically Signed Bridgett Ramsey M.D. Gross Description Received in formalin, labeled "right head of femur," is a 4.0 x 3.8 x 3.4 cm. femoral head with a 1.0 cm in length portion of femoral neck attached. The margin of resection is smooth. There is a 3 cm in greatest dimension area of eburnation present. The remaining articular surface is salvador-yellow and diffusely granular. The underlying trabecular bone is yellow and hard. A litigation claim representative section is submitted in one cassette, following decalcification. 10/03/2018 [facility]10/03/2018
== END 2018-10-04 13:20 | disposition home health service (06) | DRG 470 ==
LOC: FM/S 05:54
PROVIDERS: ADMIT Student in an Organized Health Care Education/Training Program; ATTEND Student in an Organized Health Care Education/Training Program
PROC: 8E0W0CZ Robotic Assisted Procedure of Trunk Region, Open Approach (ICD-10-PCS; 2018-10-02)
PROC: 0SR90JZ Replacement of Right Hip Joint with Synthetic Substitute, Open Approach (ICD-10-PCS; principal; 2018-10-02 08:53)
DX: M16.11 Unilateral primary osteoarthritis, right hip (principal); I10 Essential (primary) hypertension; E78.5 Hyperlipidemia, unspecified; K21.9 Gastro-esophageal reflux disease without esophagitis; E03.9 Hypothyroidism, unspecified
CPT/HCPCS: 36415; 73523-TC-FY; 80048; 85027; 88304-TC; 88311-TC; 94760; 97116-GP; 97162-GP; J0131; J1100